=== PATIENT | female | born 1995 | race Caucasian/White ===

== ENCOUNTER 2016-10-04 18:31 | Emergency (ER) | payer OTHER ==
[2016-10-04 19:11] VITALS: BP 103/68; PULSE 78; TEMP 97.8; O2SAT 100
--- NOTE | 2016-10-04 19:33 | C.PDOC ---
History Of Present Illness 21 y/o female presents to the ED with complains of itching and swelling to throat s/p drinking juice today. Pt denies SOB, skin itching/swelling, chest pain, vomiting or any other complaints. Time Seen by Provider: 10/04/16 19:30 Chief Complaint (Nursing): Allergic Reaction History Per: Patient History/Exam Limitations: no limitations Onset/Duration Of Symptoms: Hrs Current Symptoms Are (Timing): Still Present Context: Food Possible Cause: Food Associated Symptoms: Itching. denies: Skin Rash, Chest Pain Home/EMS Treatment: None Severity: Mild Recent travel outside of the [place]: No Past Medical History Reviewed: Historical Data, Nursing Documentation, Vital Signs Vital Signs: Last Vital Signs Temp 97.8 F 10/04/16 19:08 Pulse 78 10/04/16 19:08 Resp 16 10/04/16 19:08 BP 103/68 10/04/16 19:08 Pulse Ox 100 10/04/16 19:35 Family History: States: Unknown Family Hx - Social History Hx Alcohol Use: No Hx Substance Use: No - Immunization History Hx Tetanus Toxoid Vaccination: No Hx Influenza Vaccination: No Hx Pneumococcal Vaccination: No Review Of Systems Except As Marked, All Systems Reviewed And Found Negative. ENT: Positive for: Throat Swelling (throat itchiness and swelling) Cardiovascular: Negative for: Chest Pain Respiratory: Negative for: Shortness of Breath Gastrointestinal: Negative for: Vomiting Skin: Negative for: Rash Physical Exam - Physical Exam Appears: Non-toxic, No Acute Distress Skin: Warm, Dry, No Rash Head: Atraumatic, Normacephalic Oral Mucosa: Moist Tongue: Normal Appearing Lips: Normal Appearing Throat: Normal, No Erythema, Other (no edema) Neck: Normal ROM, Supple Chest: Symmetrical Cardiovascular: Rhythm Regular, No Murmur Respiratory: Normal Breath Sounds, No Accessory Muscle Use, No Rales, No Rhonchi , No Wheezing Gastrointestinal/Abdominal: Soft Extremity: No Swelling Extremity: Bilateral: Atraumatic Neurological/Psych: Oriented x3, Normal Speech ED Course And Treatment O2 Sat by Pulse Oximetry: 100 (on room air) Pulse Ox Interpretation: Normal Medical Decision Making Medical Decision Making: Plan: gave Benadryl Disposition - Disposition Referrals: [facility] [Outside] Prescriptions: DiphenhydrAMINE [Benadryl] 25 mg PO Q6 #7 cap Instructions: General Allergic Reaction (ED) - Clinical Impression Clinical Impression: Allergic state - Scribe Statement The provider has reviewed the documentation as recorded by the Esauibrosa Hallman Provider Attestation: All medical record entries made by the Esauibrosa were at my direction and personally dictated by me. I have reviewed the chart and agree that the record accurately reflects my personal performance of the history, physical exam, medical decision making, and the department course for this patient. I have also personally directed, reviewed, and agree with the discharge instructions and disposition.
--- NOTE | 2016-10-04 19:33 | C.PDOC ---
Time Seen by Provider: 10/04/16 19:30 Chief Complaint (Nursing): Allergic Reaction Past Medical History Vital Signs: Last Vital Signs Temp 97.8 F 10/04/16 19:08 Pulse 78 10/04/16 19:08 Resp 16 10/04/16 19:08 BP 103/68 10/04/16 19:08 Pulse Ox 100 10/04/16 19:08 - Social History Hx Alcohol Use: No Hx Substance Use: No - Immunization History Hx Tetanus Toxoid Vaccination: No Hx Influenza Vaccination: No Hx Pneumococcal Vaccination: No ED Course And Treatment O2 Sat by Pulse Oximetry: 100 Disposition Counseled Patient/Family Regarding: Diagnosis - Disposition Referrals: [facility] [Outside] Disposition: HOME/ ROUTINE Disposition Time: 19:31 Condition: STABLE Prescriptions: DiphenhydrAMINE [Benadryl] 25 mg PO Q6 #7 cap Instructions: General Allergic Reaction (ED) - POA Present On Arrival: None - Clinical Impression Clinical Impression: Allergic state
[2016-10-04 19:49] VITALS: RESP 20
== END 2016-10-04 19:48 | disposition home or self-care (01) ==
LOC: C.ER 18:31
DX: T78.1XXA Other adverse food reactions, not elsewhere classified, initial encounter (principal); R19.8 Other specified symptoms and signs involving the digestive system and abdomen